=== PATIENT | male | born 1990 | race Caucasian/White ===

== ENCOUNTER 2016-12-15 06:02 | Emergency (ER) | payer MEDICAID ==
[~2016-12-15] VITALS: Ht 185.4 cm; Wt 91.0 kg
[2016-12-15] MEDS ORDERED: SODIUM CHLORIDE 0.9% 1,000 ML IV ONE (06:15)
[2016-12-15] MEDS ORDERED: LORazepam 2 MG/ML, 1ML IVPush ONE (06:30)
[2016-12-15] MEDS ORDERED: SODIUM CHLORIDE 0.9% 1,000ML IVBOLUS ONE (06:30)
[2016-12-15] MEDS ORDERED: LORazepam 2 MG/ML, 1ML ONE (06:30)
[2016-12-15] MEDS ORDERED: PLEASE ENTER ALLERGIES MC SCH ×2 (06:30)
[2016-12-15] MEDS ORDERED: SODIUM CHLORIDE FLUSH 10ML SYR IVF ONE (06:30)
[2016-12-15 06:54] LABS: ASPARTATE AMINO TRANSFERASE 240 U/L (15-37); BLOOD UREA NITROGEN 6 mg/dL (7-18)
[2016-12-15 06:59] LABS: ACETAMINOPHEN < 2 mcg/mL (10-30)
[2016-12-15] MEDS ORDERED: POTASSIUM CHLORIDE 20 MEQ TAB.ER.PRT PO ONE (07:00)
[2016-12-15] MEDS ORDERED: POTASSIUM CHLORIDE 20 MEQ TAB.ER.PRT ONE (07:49)
[2016-12-15 08:32] VITALS: BP 155/101
[2016-12-15 08:35] LABS: DAU SCREEN DISCLAIMER
== END 2016-12-15 09:49 | disposition home or self-care (01) ==
LOC: ED 07:20
DX: G40.509 Epileptic seizures related to external causes, not intractable, without status epilepticus (principal); F10.239 Alcohol dependence with withdrawal, unspecified; K80.70 Calculus of gallbladder and bile duct without cholecystitis without obstruction; E87.6 Hypokalemia
CPT/HCPCS: 36415; 70450; 71010; 76700; 80053; 80307; 80329; 81001; 82140; 85025; 87086; 93005; 96361; 96374; 99285; J2060; J7030; 96365; 96367; G0480

== ENCOUNTER 2016-12-19 06:06 | Emergency (ER) | payer MEDICAID ==
[~2016-12-19] VITALS: Ht 180.3 cm; Wt 92.4 kg
[2016-12-19 06:07] VITALS: BP 144/85
[2016-12-19] MEDS ORDERED: CHLO10CA6 PO (06:28)
[2016-12-19] MEDS ORDERED: THIAMINE 100MG TABLET PO ONE (07:00)
== END 2016-12-19 07:00 | disposition home or self-care (01) ==
LOC: ED 06:30
DX: F10.180 Alcohol abuse with alcohol-induced anxiety disorder (principal); F17.210 Nicotine dependence, cigarettes, uncomplicated; Z76.0 Encounter for issue of repeat prescription
CPT/HCPCS: 99283

== ENCOUNTER 2017-04-06 23:48 | Emergency (ER) | payer MEDICAID ==
[~2017-04-06] VITALS: Ht 180.3 cm; Wt 93.2 kg
[~2017-04-06 23:48] MED LIST: CHLO10CA6 PO
[2017-04-07] MEDS ORDERED: SODIUM CHLORIDE 0.9% 1,000ML IVBOLUS ONE
[2017-04-07] MEDS ORDERED: LORazepam 2 MG/ML, 1ML IVPush PRN
[2017-04-07] MEDS ORDERED: LORazepam 2 MG/ML, 1ML ONE (00:13)
[2017-04-07 00:28] LABS: BLOOD UREA NITROGEN 5 mg/dL (7-18)
[2017-04-07] MEDS ORDERED: PLEASE ENTER HEIGHT AND WEIGHT MC SCH (00:30)
[2017-04-07 00:31] LABS: ASPARTATE AMINO TRANSFERASE 730 U/L (15-37)
[2017-04-07 00:38] LABS: HEMOGLOBIN 15.2 g/dL (13.7-18.0); WHITE BLOOD COUNT 7.2 x10^3/uL (3.4-10)
[2017-04-07] MEDS ORDERED: POTASSIUM CHLORIDE 20 MEQ TAB.ER.PRT PO ONE (01:00)
[2017-04-07] MEDS ORDERED: POTASSIUM CHLORIDE 20 MEQ TAB.ER.PRT ONE (01:04)
[2017-04-07 02:11] VITALS: BP 140/92
== END 2017-04-07 02:14 | disposition home or self-care (01) ==
LOC: ED 23:59
DX: R56.9 Unspecified convulsions (principal); K70.10 Alcoholic hepatitis without ascites; F10.220 Alcohol dependence with intoxication, uncomplicated; R94.5 Abnormal results of liver function studies
CPT/HCPCS: 36415; 80053; 80307; 85025; 93005; 96360; 99285; J7030; G0479